=== PATIENT | male | born 1970 | race Caucasian/White ===

== ENCOUNTER 2018-05-31 09:06 | Observation (INO) ==
[2018-05-31] MEDS ORDERED: Thiamine Inj 100 MG in Sodium Chlor 0.9% Inj 100 ML IV.SIG ONE (11:45)
[2018-05-31] MEDS ORDERED: Acetaminophen 325 MG Tablet PO ONE (11:45)
--- NOTE | 2018-05-31 11:56 | ED ---
HPI General Chief Complaint: Seizure Stated Complaint: Poss Syncope Time Seen by Provider: 05/31/18 11:25 Source: patient Mode of arrival: ambulatory Limitations: no limitations History of Present Illness HPI Narrative: 47-year-old male complains of headache, feeling shaky. Patient has history of alcohol abuse. Patient stopped drinking a week ago because he ran out of money. Patient was witnessed had a syncopal episode and seizure this morning. EMS was called. Patient was observed in postictal state. Patient probably hit the back of his head during the seizure episode. Patient states that he has history of migraine headache. Patient complained of aching headache typical of his migraine. Patient denies any visual change. Patient denies any neck pain. Patient denies any chest pain or shortness of breath. Patient denies abdominal pain. Patient denies no focal weakness or numbness of the extremity. Patient states that he has history of liver disease. Patient states that he is not on any routine medication. Patient denies any history of seizure in the past. MD complaint: Reports possible seizure and syncope Onset (ago): hour(s) Description of Episode: Reports loss of consciousness -: minutes(s) Witnessed: yes - by bystander Trauma: Yes Seizure History: Reports none Place: work and street/outdoors Possible Precipitating Event: Reports alcohol withdrawal Associated symptoms: Reports denies other symptoms Treatments prior to arrival: Reports none Related Data Home Medications Medication Instructions Recorded Confirmed No Known Home Medications 05/31/18 05/31/18 Allergies Allergy/AdvReac Type Severity Reaction Status Date / Time No Known Allergies Allergy Verified 05/31/18 13:00 Review of Systems ROS: all other systems reviewed are negative PMFSH Medical History Medical History ETOH abuse (Acute) Hepatitis (Acute) Social History Social History Substance History: No History of Abuse Smoking Status: Current every day smoker Tobacco Type: Cigarettes How Often Do You Have a Drink Containing Alcohol: 4 or more times a week Recent Travel in [facility] within the Last 8 Weeks: No Recent Out of Country Travel within the Last 8 Weeks: No Immunization History Tetanus Immunization: Unsure Exam Narrative Exam Narrative: GENERAL: Well-nourished, well-developed patient. SKIN: Focused skin assessment warm/dry. HEAD: Normocephalic. EYES: No scleral icterus. No injection or drainage. Pupils 2 mm equal reactive. NECK: Supple, trachea midline. No JVD or lymphadenopathy. CARDIOVASCULAR: Regular rate and rhythm without murmurs, gallops, or rubs. RESPIRATORY: Breath sounds equal bilaterally. No accessory muscle use. GASTROINTESTINAL: Abdomen soft, non-tender, nondistended. MUSCULOSKELETAL: No cyanosis, or edema. BACK: Nontender without obvious deformity. No CVA tenderness. Neurologic exam: Patient with mild trembling activity. Patient moves all extremity well. No obvious focal neurologic deficit. Course Initial Documented Vital Signs Temperature 99.0 F 05/31/18 11:07 Pulse Rate 101 H 05/31/18 11:07 Respiratory Rate 20 05/31/18 11:07 Blood Pressure 131/83 05/31/18 11:07 Pulse Oximetry 98 05/31/18 11:07 Last Documented Vital Signs Temperature 99.0 F 05/31/18 11:07 Pulse Rate 101 H 05/31/18 11:07 Respiratory Rate 20 05/31/18 11:07 Blood Pressure 131/83 05/31/18 11:07 Pulse Oximetry 98 05/31/18 11:07 Medical Decision Making MDM Narrative Medical decision making narrative: 47-year-old male was brought in by EMS for syncope and possible seizure activity. History of alcohol abuse. Patient stopped drinking a week ago. Most likely alcohol withdrawal seizure. Thiamine 100 mg IV. Ativan 1 mg IV. CIWA protocol started. Normal saline solution 125 cc an hour. Medical Screen Exam Complete: Yes Emergency Medical Condition: Yes Lab Data Lab results reviewed: Yes I reviewed the patient's lab results. Result diagrams: 05/31/18 12:15 05/31/18 12:15 Lab Results 05/31/18 05/31/18 05/31/18 Range/Units 12:00 12:00 12:15 WBC (4.0-11.0) th/mm3 RBC (4.50-5.90) mil/mm3 Hgb (13.0-17.0) gm/dL Hct (39.0-51.0) % MCV (80.0-100.0) fL MCH (27.0-34.0) pg MCHC (32.0-36.0) % RDW (11.6-17.2) % Plt Count (150-450) th/mm3 MPV (7.0-11.0) fL Prelim Diff (Auto) Neut % (Auto) (16.0-70.0) % Lymph % (Auto) (9.0-44.0) % Weld % (Auto) (0.0-8.0) % Eos % (Auto) (0.0-4.0) % Baso % (Auto) (0.0-2.0) % Neut # (Auto) (1.8-7.7) th/mm3 Lymph # (Auto) (1.0-4.8) th/mm3 Weld # (Auto) (0.0-0.9) th/mm3 Eos # (Auto) (0.0-0.4) th/mm3 Baso # (Auto) (0.0-0.2) th/mm3 Differential Comment PT 11.1 (9.8-11.6) sec INR 1.1 Ratio APTT 25.9 (24.3-30.1) sec Sodium (136-145) meq/L Potassium (3.5-5.1) meq/L Chloride (98-107) meq/L Carbon Dioxide (21.0-32.0) meq/L Anion Gap (5-15) meq/L BUN (7-18) mg/dL Creatinine (0.60-1.30) mg/dL Estimated GFR (>89) mL/min Random Glucose (74-106) mg/dL Calcium (8.5-10.1) mg/dL Magnesium (1.5-2.5) mg/dL Total Bilirubin (0.2-1.0) mg/dL AST (15-37) U/L ALT (12-78) U/L Alkaline Phosphatase (45-117) U/L Total Creatine Kinase (39-308) U/L Total Protein (6.4-8.2) g/dL Albumin (3.4-5.0) g/dL Urine Color Yellow (Yellw/Straw) Urine Clarity Hazy H (Clear) Urine pH 7.0 (5.0-8.5) Ur Specific [place] 1.010 (1.002-1.035) Urine Protein 30 H (Neg-Trace) mg/dL Urine Glucose (UA) Negative (Negative) mg/dL Urine Ketones Trace H (Negative) mg/dL Urine Occult Blood Negative (Negative) Urine Nitrate Negative (Negative) Urine Bilirubin Negative (Negative) Urine Urobilinogen 4 or greater (Less than 2) mg/dL Ur Leukocyte Esterase Negative (Negative) Urine RBC 1 (0-3) /hpf Urine WBC 2 (0-5) /hpf Ur Squamous Epith Cells 1 (0-5) /hpf Hyaline Casts 3 (0-3) /lpf Urine Mucus Few H (Occasional) /lpf Micro UA Comment Culture not ind Ur Microscopic Review Not Reportable Urine Culture Comments Culture not ind Urine Opiates Screen Neg (Neg) Ur Barbiturates Screen Neg (Neg) Ur Amphetamines Screen Neg (Neg) U Benzodiazepines Scrn Neg (Neg) Urine Cocaine Screen Neg (Neg) U Cannabinoids Screen Neg (Neg) Serum Alcohol (0-5) mg/dL 05/31/18 05/31/18 Range/Units 12:15 12:15 WBC 8.3 (4.0-11.0) th/mm3 RBC 3.70 L (4.50-5.90) mil/mm3 Hgb 13.7 (13.0-17.0) gm/dL Hct 39.2 (39.0-51.0) % MCV 105.9 H (80.0-100.0) fL MCH 37.0 H (27.0-34.0) pg MCHC 34.9 (32.0-36.0) % RDW 12.5 (11.6-17.2) % Plt Count 78 L (150-450) th/mm3 MPV 9.1 (7.0-11.0) fL Prelim Diff (Auto) Slide review pending Neut % (Auto) 80.1 H (16.0-70.0) % Lymph % (Auto) 8.2 L (9.0-44.0) % Weld % (Auto) 11.4 H (0.0-8.0) % Eos % (Auto) 0.0 (0.0-4.0) % Baso % (Auto) 0.3 (0.0-2.0) % Neut # (Auto) 6.7 (1.8-7.7) th/mm3 Lymph # (Auto) 0.7 L (1.0-4.8) th/mm3 Weld # (Auto) 0.9 (0.0-0.9) th/mm3 Eos # (Auto) 0.0 (0.0-0.4) th/mm3 Baso # (Auto) 0.0 (0.0-0.2) th/mm3 Differential Comment . PT (9.8-11.6) sec INR Ratio APTT (24.3-30.1) sec Sodium 133 L (136-145) meq/L Potassium 4.2 (3.5-5.1) meq/L Chloride 98 (98-107) meq/L Carbon Dioxide 27.5 (21.0-32.0) meq/L Anion Gap 8 (5-15) meq/L BUN 5 L (7-18) mg/dL Creatinine 0.69 (0.60-1.30) mg/dL Estimated GFR Greater than 89 (>89) mL/min Random Glucose 101 (74-106) mg/dL Calcium 8.8 (8.5-10.1) mg/dL Magnesium 1.8 (1.5-2.5) mg/dL Total Bilirubin 1.1 H (0.2-1.0) mg/dL AST 106 H (15-37) U/L ALT 73 (12-78) U/L Alkaline Phosphatase 72 (45-117) U/L Total Creatine Kinase 291 (39-308) U/L Total Protein 8.0 (6.4-8.2) g/dL Albumin 4.0 (3.4-5.0) g/dL Urine Color (Yellw/Straw) Urine Clarity (Clear) Urine pH (5.0-8.5) Ur Specific [place] (1.002-1.035) Urine Protein (Neg-Trace) mg/dL Urine Glucose (UA) (Negative) mg/dL Urine Ketones (Negative) mg/dL Urine Occult Blood (Negative) Urine Nitrate (Negative) Urine Bilirubin (Negative) Urine Urobilinogen (Less than 2) mg/dL Ur Leukocyte Esterase (Negative) Urine RBC (0-3) /hpf Urine WBC (0-5) /hpf Ur Squamous Epith Cells (0-5) /hpf Hyaline Casts (0-3) /lpf Urine Mucus (Occasional) /lpf Micro UA Comment Ur Microscopic Review Urine Culture Comments Urine Opiates Screen (Neg) Ur Barbiturates Screen (Neg) Ur Amphetamines Screen (Neg) U Benzodiazepines Scrn (Neg) Urine Cocaine Screen (Neg) U Cannabinoids Screen (Neg) Serum Alcohol Less than 3 (0-5) mg/dL Imaging Data Attestation: I personally reviewed and interpreted this imaging study as follows : Radiologist's impression: Head CT 05/31/18 11:45 CONCLUSION: 1. No acute intracranial abnormality. 2. Mild right frontal sinus mucosal disease. . Discharge Plan Discharge Disposition Patient Disposition: 30 Still Patient Discharge Details Diagnosis: Seizure, Alcohol withdrawal Physicians Team ED Provider: Anson Gutierrez Primary Care Provider: Primary Care Physici,No Rxs /Orders / Referrals /Forms Prescriptions: No Action No Known Home Medications RF: 0 Status ED Status: With Doctor
[2018-05-31] MEDS ORDERED: Haloperidol Inj 5 MG/ML Ampul IV.PUSH PRN (12:00)
[2018-05-31] MEDS ORDERED: LORazepam 1 MG Tablet PO PRN (12:00)
[2018-05-31 12:39] LABS: Baso % (Auto) 0.3 % (0.0-2.0); Hematocrit 39.2 % (39.0-51.0); Hemoglobin 13.7 gm/dL (13.0-17.0); Lymph # (Auto) 0.7 th/mm3 (1.0-4.8); Lymph % (Auto) 8.2 % (9.0-44.0); Mean Corpuscular HGB Conc 34.9 % (32.0-36.0); Mean Corpuscular Volume 105.9 fL (80.0-100.0); Mean Platelet Volume 9.1 fL (7.0-11.0); Mono # (Auto) 0.9 th/mm3 (0.0-0.9); Mono % (Auto) 11.4 % (0.0-8.0); Neut # (Auto) 6.7 th/mm3 (1.8-7.7); Neut % (Auto) 80.1 % (16.0-70.0); Platelet Count 78 th/mm3 (150-450); Red Cell Distribution Width 12.5 % (11.6-17.2); White Blood Count 8.3 th/mm3 (4.0-11.0)
[2018-05-31 12:52] LABS: Activated Partial Thrombo Time 25.9 sec (24.3-30.1); INR 1.1 Ratio; Prothrombin Time 11.1 sec (9.8-11.6)
[2018-05-31 12:53] LABS: Anion Gap 8 meq/L (5-15); Aspartate Aminotransferase 106 U/L (15-37); Blood Urea Nitrogen 5 mg/dL (7-18); Calcium 8.8 mg/dL (8.5-10.1); Carbon Dioxide 27.5 meq/L (21.0-32.0); Chloride 98 meq/L (98-107); Glomerular Filtration Rate Greater Than 89 mL/min (>89); Glucose,Random 101 mg/dL (74-106); Magnesium 1.8 mg/dL (1.5-2.5); Potassium 4.2 meq/L (3.5-5.1); Sodium 133 meq/L (136-145)
[2018-05-31 12:54] LABS: Alanine Aminotransferase 73 U/L (12-78)
[2018-05-31 12:57] LABS: Alkaline Phosphatase 72 U/L (45-117); Creatine Kinase 291 U/L (39-308)
[2018-05-31 12:58] LABS: Bilirubin,Urine Negative (Negative); Clarity,Urine Hazy (Clear); Color,Urine Yellow (Yellw/Straw); Glucose,Urine (UA) Negative (Negative); Hyaline Casts,Urine 3 /lpf (0-3); Leukocyte Esterase,Urine Negative (Negative); Mucus,Urine Few /lpf (Occasional); Nitrite,Urine Negative (Negative); Squamous Epithelial Cell,Urine 1 /hpf (0-5); Urobilinogen,Urine 4 or Greater mg/dL (Less than 2)
[2018-05-31 13:05] LABS: Amphetamine Screen,Urine Neg (Neg); Barbiturate Screen,Urine Neg (Neg); Cannabinoid Screen,Urine Neg (Neg); Cocaine Screen,Urine Neg (Neg)
[2018-05-31 13:06] LABS: Opiate Screen,Urine Neg (Neg)
--- NOTE | 2018-05-31 13:51 | CT ---
EXAM DATE: 05/31/2018 11:53 AM EDT AGE/SEX: 47 years / Male INDICATIONS: Syncopal episode. Cephalgia. CLINICAL DATA: This is the patient's initial encounter. Patient reports that signs and symptoms have been present for 1 day and indicates a pain score of 3/10. MEDICAL/SURGICAL HISTORY: . ETOH abuse None. RADIATION DOSE: 36.20 CTDI (mGy) COMPARISON: No prior exams available for comparison. TECHNIQUE: CT of the head without contrast. Using automated exposure control and adjustment of the mA and/or kV according to patient size, radiation dose was kept as low as reasonably achievable to ob tain optimal diagnostic quality images. DICOM format image data is available electronically for revi ew and comparison. FINDINGS: Cerebrum: The ventricles are normal for age. No evidence of midline shift, mass lesion, hemorrhage o r acute infarction. No extraaxial fluid collections are seen. Posterior Fossa: The cerebellum and brainstem are intact. The 4th ventricle is midline. The cerebe llopontine angle is unremarkable. Extracranial: The visualized portion of the orbits is intact. Small mucous retention cyst in the rig ht frontal sinus. Skull: The calvaria is intact. No evidence of skull fracture. CONCLUSION: 1. No acute intracranial abnormality. 2. Mild right frontal sinus mucosal disease. . Electronically signed by: Car Blanco MD 05/31/2018 1:50 PM EDT
[2018-05-31 13:56] LABS: Platelet Morphology Normal (Normal)
[2018-05-31] MEDS ORDERED: Bisacodyl 10 MG Supp RECTAL PRN (14:21)
[2018-05-31] MEDS ORDERED: Acetaminophen 325 MG Tablet PO PRN (14:21)
[2018-05-31] MEDS: Sod Chloride 0.9% Inj 1,000 ML IV.CONT SCH ×2 (14:30→22:41)
--- NOTE | 2018-05-31 14:31 | P.HP ---
History of Present Illness Service: Hospitalist Primary Care Physician: No Primary Care Physician Chief Complaint: Possible seizure History of Present Illness: Mr. Galarza is a pleasant 47-year-old male with a history of alcohol abuse who was brought to the hospital due to an episode of syncope as well as possible seizure activity. He passed out and was confused. He is not able to provide much more info about the incident. Patient stopped drinking about a week ago because he ran out of money. Patient currently denies any chest pain, shortness of breath, fever, chills. He reports occasional pain in his feet or left arm. No changes in bowel or bladder habits. Patient denies any history of seizure disorder. Past medical history: Alcohol abuse Past surgical history: No major surgery Social history: Smokes cigarettes about 1 ppd. Denies using illicit drugs. Drinks about two 4 pack beer a day. Family history: No family history of heart disease, cancer. Review of Systems All other systems reviewed negative except as stated in HPI PMFSH - History History Provided By: Patient, Manager Of Broadcast Content / EMT - Medical History Medical History: Medical History (Last Reviewed 05/31/18 @ 11:55 by Anson Gutierrez MD) ETOH abuse Hepatitis - Tobacco History Tobacco Use In Past 30 Days: Yes Smoking Status: Current every day smoker Tobacco Type: Cigarettes - Alcohol History How Often Do You Have a Drink Containing Alcohol: 4 or more times a week - Substance Use History Substance History: No History of Abuse - Travel History Recent Travel in the [place] Within the Last 8 Weeks: No Recent Travel Out of the Country Within the Last 8 Weeks: No - Immunization History Tetanus Immunization: Unsure Medications and Allergies Active Medications: Active Medications Acetaminophen (Tylenol) 650 mg PO Q4H PRN PRN Reason: Headache, fever, pain 1-4 Al Hydroxide/Mg Hydroxide (Milk Of Magnesia Liq) 30 ml PO Q12H PRN PRN Reason: Mild Constipation Bisacodyl (Dulcolax Supp) 10 mg RECTAL DAILY PRN PRN Reason: SEVERE CONSITIPATION Flumazenil (Romazecon Inj) 0.2 mg IV.PUSH Q1M PRN PRN Reason: OVERSEDATION Haloperidol Lactate (Haldol Inj) 1 mg IV.PUSH Q15M PRN PRN Reason: for severe agitation Sodium Chloride (Ns Inj) 1,000 mls @ 125 mls/hr IV.CONT .Q8H DIPTI Last Admin: 05/31/18 14:30 Dose: 125 mls/hr Lactulose (Lactulose Liq) 30 ml PO DAILY PRN PRN Reason: SEVERE CONSITIPATION Lorazepam (Ativan Inj) 1 mg IV.PUSH Q4H PRN PRN Reason: for CIWA 8-10 Last Admin: 05/31/18 12:14 Dose: 1 mg Lorazepam (Ativan Inj) 2 mg IV.PUSH Q15M PRN PRN Reason: for CIWA > 20 Lorazepam (Ativan Inj) 2 mg IV.PUSH Q1H PRN PRN Reason: for CIWA 15-20 Lorazepam (Ativan Inj) 2 mg IV.PUSH Q2H PRN PRN Reason: for CIWA 11-14 Lorazepam (Ativan) 2 mg PO Q2H PRN PRN Reason: for CIWA 11-14 Lorazepam (Ativan) 1 mg PO Q4H PRN PRN Reason: for CIWA 8-10 Ondansetron HCl (Zofran Inj) 4 mg IV.PUSH Q6H PRN PRN Reason: NAUSEA OR VOMITING Sennosides (Senokot) 17.2 mg PO Q12H PRN PRN Reason: Moderate Constipation Allergies Allergy/AdvReac Type Severity Reaction Status Date / Time No Known Allergies Allergy Verified 05/31/18 13:00 Home Medications Medication Instructions Recorded Confirmed Type No Known Home Medications 05/31/18 05/31/18 History Exam Vital signs: Vital Signs 05/31/18 11:07 05/31/18 14:30 Temperature 99.0 F Pulse Rate 101 H Respiratory Rate 20 15 Blood Pressure 131/83 Pulse Oximetry 98 Intake & Output 05/30/18 05/31/18 05/31/18 18:59 06:59 18:59 Intake Total 101 / 101 Balance 101 / 101 Weight 63.503 kg Intake: IV 101 / 101 Thiamine Inj 100 MG In NS Inj 101 / 101 100 ML @ 100 mls/hr IV.SIG ONCE ONE Rx#:[id number] Narrative: GENERAL: This is a well-nourished, well-developed patient, in no apparent distress. Has mild tremors. SKIN: No rashes, ecchymoses or lesions. Warm and dry. HEAD: Atraumatic. Normocephalic. No temporal or scalp tenderness. EYES: Pupils equal round and reactive. No injection or drainage. ENT: Nose without bleeding, purulent drainage or septal hematoma. Airway patent. NECK: Trachea midline. No lymphadenopathy. Supple, nontender, no meningeal signs. CARDIOVASCULAR: Regular rate and rhythm without murmurs, gallops, or rubs. No JVD. RESPIRATORY: Clear to auscultation. Breath sounds equal bilaterally. No wheezes , rales, or rhonchi. GASTROINTESTINAL: Abdomen soft, non-tender, nondistended. No guarding. MUSCULOSKELETAL: Extremities without clubbing, cyanosis, or edema. NEUROLOGICAL: Awake and alert. Cranial nerves II through XII intact. No focal neurological deficits. Normal speech. Results - Labs CBC & Chem 7: 05/31/18 12:15 05/31/18 12:15 Labs: Laboratory Results - last 24 hr 05/31/18 05/31/18 05/31/18 12:00 12:00 12:15 WBC RBC Hgb Hct MCV MCH MCHC RDW Plt Count MPV Prelim Diff (Auto) Neut % (Auto) Lymph % (Auto) [place] % (Auto) Eos % (Auto) Baso % (Auto) Neut # (Auto) Lymph # (Auto) [place] # (Auto) Eos # (Auto) Baso # (Auto) WBC Differential Diff Scan Differential Comment Platelet Estimate Platelet Morphology PT 11.1 INR 1.1 APTT 25.9 Sodium Potassium Chloride Carbon Dioxide Anion Gap BUN Creatinine Estimated GFR Random Glucose Calcium Magnesium Total Bilirubin AST ALT Alkaline Phosphatase Total Creatine Kinase Total Protein Albumin Urine Color Yellow Urine Clarity Hazy H Urine pH 7.0 Ur Specific [place] 1.010 Urine Protein 30 H Urine Glucose (UA) Negative Urine Ketones Trace H Urine Occult Blood Negative Urine Nitrate Negative Urine Bilirubin Negative Urine Urobilinogen 4 or greater Ur Leukocyte Esterase Negative Urine RBC 1 Urine WBC 2 Ur Squamous Epith Cells 1 Hyaline Casts 3 Urine Mucus Few H Micro UA Comment Culture not ind Ur Microscopic Review Not Reportable Urine Culture Comments Culture not ind Urine Opiates Screen Neg Ur Barbiturates Screen Neg Ur Amphetamines Screen Neg U Benzodiazepines Scrn Neg Urine Cocaine Screen Neg U Cannabinoids Screen Neg Serum Alcohol 05/31/18 05/31/18 12:15 12:15 WBC 8.3 RBC 3.70 L Hgb 13.7 Hct 39.2 MCV 105.9 H MCH 37.0 H MCHC 34.9 RDW 12.5 Plt Count 78 L MPV 9.1 Prelim Diff (Auto) Slide review pending Neut % (Auto) 80.1 H Lymph % (Auto) 8.2 L [place] % (Auto) 11.4 H Eos % (Auto) 0.0 Baso % (Auto) 0.3 Neut # (Auto) 6.7 Lymph # (Auto) 0.7 L [place] # (Auto) 0.9 Eos # (Auto) 0.0 Baso # (Auto) 0.0 WBC Differential . Diff Scan Auto diff confirmed Differential Comment . Platelet Estimate Low L Platelet Morphology Normal PT INR APTT Sodium 133 L Potassium 4.2 Chloride 98 Carbon Dioxide 27.5 Anion Gap 8 BUN 5 L Creatinine 0.69 Estimated GFR Greater than 89 Random Glucose 101 Calcium 8.8 Magnesium 1.8 Total Bilirubin 1.1 H AST 106 H ALT 73 Alkaline Phosphatase 72 Total Creatine Kinase 291 Total Protein 8.0 Albumin 4.0 Urine Color Urine Clarity Urine pH Ur Specific [place] Urine Protein Urine Glucose (UA) Urine Ketones Urine Occult Blood Urine Nitrate Urine Bilirubin Urine Urobilinogen Ur Leukocyte Esterase Urine RBC Urine WBC Ur Squamous Epith Cells Hyaline Casts Urine Mucus Micro UA Comment Ur Microscopic Review Urine Culture Comments Urine Opiates Screen Ur Barbiturates Screen Ur Amphetamines Screen U Benzodiazepines Scrn Urine Cocaine Screen U Cannabinoids Screen Serum Alcohol Less than 3 - Imaging Impressions Head CT 05/31/18 11:45 CONCLUSION: 1. No acute intracranial abnormality. 2. Mild right frontal sinus mucosal disease. . Caprini VTE Risk Assessment Caprini VTE Risk Assessment: No/Low Risk (score <= 1) Caprini Risk Assessment Model: Point Value = 1 Point Value = 2 Point Value = 3 Point Value = 5 Age 41-60 Minor surgery BMI > 25 kg/m2 Swollen legs Varicose veins or History of unexplained or recurrent spontaneous Oral contraceptives or hormone replacement Sepsis (< 1 month) Serious lung disease, including pneumonia (< 1 month) Abnormal pulmonary function Acute myocardial infarction Congestive heart failure (< 1 month) History of inflammatory bowel disease Medical patient at bed rest Age 61-74 Arthroscopic surgery Major open surgery (> 45 min) Laparoscopic surgery (> 45 min) Malignancy Confined to bed (> 72 hours) Immobilizing plaster cast Central venous access Age >= 75 History of VTE Family history of VTE Factor V Leiden Prothrombin [id number] Lupus anticoagulant Anticardiolipin antibodies Elevated serum homocysteine Heparin-induced thrombocytopenia Other congenital or acquired thrombophilia Stroke (< 1 month) Elective arthroplasty Hip, pelvis, or leg fracture Acute spinal cord injury (< 1 month) Prophylaxis Regimen: Total Risk Factor Score Risk Level Prophylaxis Regimen 0-1 Low Early ambulation 2 Moderate Order ONE of the following: *Sequential Compression Device (SCD) *Heparin 5000 units SQ BID 3-4 Higher Order ONE of the following medications: *Heparin 5000 units SQ TID *Enoxaparin/Lovenox 40 mg SQ daily (WT < 150 kg, CrCl > 30 mL/min) *Enoxaparin/Lovenox 30 mg SQ daily (WT < 150 kg, CrCl > 10-29 mL/min) *Enoxaparin/Lovenox 30 mg SQ BID (WT < 150 kg, CrCl > 30 mL/min) AND/OR *Sequential Compression Device (SCD) 5 or more Highest Order ONE of the following medications: *Heparin 5000 units SQ TID (Preferred with Epidurals) *Enoxaparin/Lovenox 40 mg SQ daily (WT < 150 kg, CrCl > 30 mL/min) *Enoxaparin/Lovenox 30 mg SQ daily (WT < 150 kg, CrCl > 10-29 mL/min) *Enoxaparin/Lovenox 30 mg SQ BID (WT < 150 kg, CrCl > 30 mL/min) AND *Sequential Compression Device (SCD) Assessment and Plan - Plan Mr. Galarza is a pleasant 47 year old male with a history of Alcoholism who presents to the ED due to an episode of syncope and possible seizure activity. Patient stopped drinking about 7 days ago due to lack of money. Syncope Episode of Seizure Alcohol abuse Tobacco abuse -Will start patient on CIWA protocol. -Thiamine, Folic acid. -EKG shows NSR. -Head CT unremarkable. -Nicotine patch. Mild hypomagnesemia -Mg 1.8. Will give 1 g of Magnesium sulfate. Full code. ambulation. Discharge: If no further seizure occurs or no syncope, patient can be discharged home tomorrow on Folic acid, Thiamine.
[2018-05-31] MEDS ORDERED: Mag Sulf 1 gm/100 ml Premix 100 ML IV.SIG ONE (16:00)
[2018-06-01 07:59] VITALS: RESP 16
[2018-06-01] MEDS ORDERED: Thiamine Inj 100 MG in Sodium Chlor 0.9% Inj 100 ML IV.SIG SCH (09:00)
[2018-06-01] MEDS ORDERED: Folic Acid 1 MG Tablet PO SCH (09:00)
--- NOTE | 2018-06-01 10:54 | P.DS ---
Date of admission: 05/31/18 14:41 Primary care physician: No Primary Care Physician Brief History from admission: Mr. Galarza is a pleasant 47-year-old male with a history of alcohol abuse who was brought to the hospital due to an episode of syncope as well as possible seizure activity. He passed out and was confused. He is not able to provide much more info about the incident. Patient stopped drinking about a week ago because he ran out of money. Patient currently denies any chest pain, shortness of breath, fever, chills. He reports occasional pain in his feet or left arm. No changes in bowel or bladder habits. Patient denies any history of seizure disorder. Past medical history: Alcohol abuse Past surgical history: No major surgery Social history: Smokes cigarettes about 1 ppd. Denies using illicit drugs. Drinks about two 4 pack beer a day. Family history: No family history of heart disease, cancer. DS: Medications - Discharge Medications Prescriptions: folic acid 1 mg PO DAILY #30 tab nicotine 1 patch TRANSDERMAL DAILY #30 ea thiamine HCl (vitamin B1) 100 mg PO DAILY #30 tab DS: Summary Hospital Course: Mr. Galarza is a pleasant 47 year old male with a history of Alcoholism who presents to the ED due to an episode of syncope and possible seizure activity. Patient stopped drinking about 7 days ago due to lack of money. Syncope likely related to alcohol use Episode of Seizure likely related to alcohol use Alcohol abuse Tobacco abuse -Will start patient on CIWA protocol. -Thiamine, Folic acid. -EKG shows NSR. -Head CT unremarkable. -Nicotine patch. Patient was counseled extensively regarding alcohol use and tobacco use Mild hypomagnesemia -Mg 1.8. Will give 1 g of Magnesium sulfate. Patient improved significantly no seizure occurs or syncope during the stay, electrolytes replenished and patient is able to eat without any problems, no withdrawal symptoms at this time. Patient is discharged home in stable condition to follow-up with PCP and consultants as outpatient. - Time Spent with Patient Total time spent providing and/or coordinating discharge services: Greater than 30 minutes - Quality: VTE Deep Vein Thrombosis/Pulmonary Embolism Present on Admission: No Exam Vital signs: Vital Signs 05/31/18 11:07 05/31/18 14:30 05/31/18 14:35 Temperature 99.0 F 99.3 F Pulse Rate 101 H 83 Respiratory Rate 20 15 15 Blood Pressure 131/83 127/83 Pulse Oximetry 98 99 10/24/18 15:49 05/31/18 16:00 05/31/18 16:04 Temperature 99.4 F 99.6 F 99.4 F Pulse Rate 83 76 83 Respiratory Rate 20 16 20 Blood Pressure 134/91 H 131/83 134/91 H Pulse Oximetry 98 05/31/18 19:28 05/31/18 19:30 06/01/18 00:00 Temperature 98.9 F 98.2 F Pulse Rate 91 H 87 81 Respiratory Rate 20 20 Blood Pressure 120/76 125/79 Pulse Oximetry 97 98 06/01/18 03:46 06/01/18 07:58 Temperature 98.7 F 98.6 F Pulse Rate 81 85 Respiratory Rate 21 16 Blood Pressure 121/78 137/88 Pulse Oximetry 97 99 Intake & Output 05/31/18 06/01/18 06/01/18 18:59 06:59 18:59 Intake Total 451 / 451 1000 / 1000 Balance 451 / 451 1000 / 1000 Weight 60.8 kg Intake: IV 201 / 201 1000 / 1000 NS Inj 1,000 ML @ 125 mls/hr IV 1000 / 1000 .CONT .[facility] Rx#:[id number] Magnesium Sulfate 1 gm/D5W 100 100 / 100 ml Premix 100 ML @ 100 mls/hr IV.SIG ONCE ONE Rx#:[id number] Thiamine Inj 100 MG In NS Inj 101 / 101 100 ML @ 100 mls/hr IV.SIG ONCE ONE Rx#:[id number] Oral 250 / 250 Other: Weight On Admission 60.8 kg Narrative: GENERAL: This is a well-nourished, well-developed patient, in no apparent distress. Has mild tremors. CARDIOVASCULAR: Regular rate and rhythm without murmurs, gallops, or rubs. No JVD. RESPIRATORY: Clear to auscultation. Breath sounds equal bilaterally. No wheezes , rales, or rhonchi. GASTROINTESTINAL: Abdomen soft, non-tender, nondistended. No guarding. MUSCULOSKELETAL: Extremities without clubbing, cyanosis, or edema. NEUROLOGICAL: Awake and alert. Cranial nerves II through XII intact. No focal neurological deficits. Normal speech. Results Procedures completed during hospitalization: No procedures Labs on day of discharge: Labs from last 24 hours 05/31/18 05/31/18 05/31/18 12:15 12:15 12:15 WBC 8.3 RBC 3.70 L Hgb 13.7 Hct 39.2 MCV 105.9 H MCH 37.0 H MCHC 34.9 RDW 12.5 Plt Count 78 L MPV 9.1 Prelim Diff (Auto) Slide review pending Neut % (Auto) 80.1 H Lymph % (Auto) 8.2 L [place] % (Auto) 11.4 H Eos % (Auto) 0.0 Baso % (Auto) 0.3 Neut # (Auto) 6.7 Lymph # (Auto) 0.7 L [place] # (Auto) 0.9 Eos # (Auto) 0.0 Baso # (Auto) 0.0 WBC Differential . Diff Scan Auto diff confirmed Differential Comment . Platelet Estimate Low L Platelet Morphology Normal PT 11.1 INR 1.1 APTT 25.9 Sodium 133 L Potassium 4.2 Chloride 98 Carbon Dioxide 27.5 Anion Gap 8 BUN 5 L Creatinine 0.69 Estimated GFR Greater than 89 Random Glucose 101 Calcium 8.8 Magnesium 1.8 Total Bilirubin 1.1 H AST 106 H ALT 73 Alkaline Phosphatase 72 Total Creatine Kinase 291 Total Protein 8.0 Albumin 4.0 Urine Color Urine Clarity Urine pH Ur Specific [place] Urine Protein Urine Glucose (UA) Urine Ketones Urine Occult Blood Urine Nitrate Urine Bilirubin Urine Urobilinogen Ur Leukocyte Esterase Urine RBC Urine WBC Ur Squamous Epith Cells Hyaline Casts Urine Mucus Micro UA Comment Ur Microscopic Review Urine Culture Comments Urine Opiates Screen Ur Barbiturates Screen Ur Amphetamines Screen U Benzodiazepines Scrn Urine Cocaine Screen U Cannabinoids Screen Serum Alcohol Less than 3 05/31/18 05/31/18 12:00 12:00 WBC RBC Hgb Hct MCV MCH MCHC RDW Plt Count MPV Prelim Diff (Auto) Neut % (Auto) Lymph % (Auto) [place] % (Auto) Eos % (Auto) Baso % (Auto) Neut # (Auto) Lymph # (Auto) [place] # (Auto) Eos # (Auto) Baso # (Auto) WBC Differential Diff Scan Differential Comment Platelet Estimate Platelet Morphology PT INR APTT Sodium Potassium Chloride Carbon Dioxide Anion Gap BUN Creatinine Estimated GFR Random Glucose Calcium Magnesium Total Bilirubin AST ALT Alkaline Phosphatase Total Creatine Kinase Total Protein Albumin Urine Color Yellow Urine Clarity Hazy H Urine pH 7.0 Ur Specific [place] 1.010 Urine Protein 30 H Urine Glucose (UA) Negative Urine Ketones Trace H Urine Occult Blood Negative Urine Nitrate Negative Urine Bilirubin Negative Urine Urobilinogen 4 or greater Ur Leukocyte Esterase Negative Urine RBC 1 Urine WBC 2 Ur Squamous Epith Cells 1 Hyaline Casts 3 Urine Mucus Few H Micro UA Comment Culture not ind Ur Microscopic Review Not Reportable Urine Culture Comments Culture not ind Urine Opiates Screen Neg Ur Barbiturates Screen Neg Ur Amphetamines Screen Neg U Benzodiazepines Scrn Neg Urine Cocaine Screen Neg U Cannabinoids Screen Neg Serum Alcohol - Impressions ITS Impressions Head CT 05/31/18 11:45 CONCLUSION: 1. No acute intracranial abnormality. 2. Mild right frontal sinus mucosal disease. . Discharge Plan - Discharge Disposition Patient Disposition: Discharge Home - Discharge Condition Condition: Stable - Discharge Order Discharge Orders: Discharge Order (Routine); Ordered 06/01/18 Ordered By: Cinthya To - Physicians Team Primary Care Provider: Primary Care Hayde Choe Attending Provider: Cinthya To
[2018-06-01 11:46] VITALS: BP 152/95; PULSE 73; TEMP 98.3; O2SAT 97
[2018-06-01] MEDS: Sod Chloride 0.9% Inj 1,000 ML IV.CONT SCH (12:15)
--- NOTE | 2018-06-01 14:10 | ECG ---
Date Performed: 05/31/2018 Time Performed: 11:37:46 PTAGE: 47 years EKG: Sinus rhythm NORMAL ECG NO PREVIOUS TRACING DOCTOR: Michael Turner Interpretating Date/Time 06/01/2018 14:07:03
== END 2018-06-01 12:45 | disposition home or self-care (01) ==
LOC: NEPD 09:06 → NEDA 14:41 → INTOOBSV 14:41 → NEDA 16:05 → NEPGCP 17:01 → NEDH 06-01 10:10 → NEPGCP 06-01 10:11
PROVIDERS: ADMIT Hospitalist; ATTEND Hospitalist